=== PATIENT | female | born 1990 | race Asian ===

== ENCOUNTER 2017-01-31 02:40 | Inpatient (IN) | payer SELFPAY ==
[~2017-01-31] VITALS: Ht 162 cm; Wt 55.8 kg
[2017-01-31] MEDS ORDERED: LR 1,000 ML IV SCH (03:00)
[2017-01-31] MEDS ORDERED: TERBUTALINE SULFATE 1 MG/ML VIAL SUBCUT ONE (03:00)
[2017-01-31] MEDS ORDERED: OXYTOCIN/NORMAL SALINE 1,000 ML IV SCH ×2 (03:00→06:11)
[2017-01-31] MEDS ORDERED: LR 1,000 ML IV ONE (03:00)
[2017-01-31] MEDS ORDERED: NALBUPHINE HCL 10 MG/ML AMP IVP PRN (03:00)
[2017-01-31 03:47] LABS: HEMATOCRIT 40.8 % (36-48); HEMOGLOBIN 13.6 g/dL (12.0-16.0); MEAN CORPUSCULAR HEMOGLOBIN 34 pg (27-31); MEAN CORPUSCULAR HGB CONC 33 % (32-36); MEAN CORPUSCULAR VOLUME 103 fL (79.0-98.0); RED BLOOD CELL COUNT(AUTO) 3.94 MIL/uL (4.2-6.2); WHITE BLOOD COUNT (AUTO) 9.4 K/uL (4.8-10.8)
[2017-01-31 03:48] LABS: BASOPHILS # (AUTO) 0.3 K/uL (0.0-0.2); BASOPHILS % (AUTO) 3.2 % (0.0-2.0); EOSINOPHILS % (AUTO) 0.3 % (0.0-4.0); LYMPHOCYTES # (AUTO) 1.1 K/uL (1.0-5.5); LYMPHOCYTES % (AUTO) 11.6 % (20.5-51.5); MONOCYTES # (AUTO) 0.5 K/uL (0.0-1.0); MONOCYTES % (AUTO) 4.9 % (1.7-9.3); NEUTROPHILS # (AUTO) 7.5 K/uL (1.8-7.7); PLATELET COUNT (AUTO) 116 K/uL (130-430); RED CELL DISTRIBUTION WIDTH 12.1 % (9.0-15.0)
[2017-01-31] MEDS ORDERED: DERMOPLAST SPRAY TP PRN (06:15)
[2017-01-31] MEDS ORDERED: MEASLES,MUMPS&RUBELLA VACC/PF 12500 UNIT/0.5 ML VIAL SUBQ PRN (06:15)
[2017-01-31] MEDS ORDERED: ANUSOL 1 EA SUPP.RECT (PREPARATION H) RC PRN (06:15)
[2017-01-31] MEDS ORDERED: RHO(D) IMMUNE GLOBULIN/MALTOSE 1500 UNITS/1.3 ML (WINHRO) IM PRN (06:15)
[2017-01-31] MEDS ORDERED: HYDROCORTISONE 0.5%, 28.35 GM TOPICAL CREAM TP PRN (06:15)
[2017-01-31] MEDS ORDERED: METHYLERGONOVINE MALEATE 0.2 MG TABLET PO PRN (06:15)
[2017-01-31] MEDS ORDERED: ACETAMINOPHEN 325 MG TABLET PO PRN (06:15)
[2017-01-31] MEDS ORDERED: TEMAZEPAM 15 MG CAPSULE PO PRN (06:15)
[2017-01-31] MEDS ORDERED: HYDROcodone/ACETAMIN 5-325 MG TAB (NORCO/ VICODIN) PO PRN ×2 (06:15)
[2017-01-31] MEDS ORDERED: SENNOSIDES/DOCUSATE SODIUM 1 TAB TABLET(SENOKOT-S) PO PRN (06:15)
[2017-01-31] MEDS ORDERED: LANOLIN 7 GM OINT. TP PRN (06:15)
[2017-01-31] MEDS ORDERED: GLYCERIN/WITCH HAZEL (TUCKS PADS) TP PRN (06:15)
[2017-01-31] MEDS ORDERED: OXYTOCIN/NORMAL SALINE 1,000 ML IV ONE (07:00)
[2017-01-31 07:34] VITALS: BP_SYST 114
[2017-01-31] MEDS: DOCUSATE SODIUM 100 MG CAPSULE PO PRN (07:55)
[2017-01-31 11:27] VITALS: BP_SYST 114
[2017-01-31] MEDS: IBUPROFEN 600 MG TABLET PO SCH ×3 (12:25→23:52)
[2017-02-01] MEDS ORDERED: IBUPROFEN 600 MG TABLET ONE (05:43)
[2017-02-01] MEDS: IBUPROFEN 600 MG TABLET PO SCH ×3 (05:52→17:41)
[2017-02-01 07:34] LABS: HEMATOCRIT 37.2 % (36-48); HEMOGLOBIN 12.8 g/dL (12.0-16.0)
[2017-02-01] MEDS: DOCUSATE SODIUM 100 MG CAPSULE PO PRN (17:41)
[2017-02-02] MEDS: IBUPROFEN 600 MG TABLET PO SCH ×3 (00:03→12:11)
[2017-02-02] MEDS: DOCUSATE SODIUM 100 MG CAPSULE PO PRN (12:11)
[2017-02-02] MEDS ORDERED: LIDOCAINE PF 1% 30ML(POUR BTL) INJ ONE (13:15)
== END 2017-02-02 13:16 | disposition home or self-care (01) | DRG 775 ==
LOC: OBSVTOIN 02:40 → SPU 02:40
PROVIDERS: ADMIT Obstetrics & Gynecology; ATTEND Obstetrics & Gynecology
PROC: 10D07Z6 Extraction of Products of Conception, Vacuum, Via Natural or Artificial Opening (ICD-10-PCS; principal; 2017-01-31)
PROC: 0W8NXZZ Division of Female Perineum, External Approach (ICD-10-PCS; 2017-01-31)
PROC: 3E0134Z Introduction of Serum, Toxoid and Vaccine into Subcutaneous Tissue, Percutaneous Approach (ICD-10-PCS; 2017-01-31)
DX: O75.89 Other specified complications of labor and delivery (principal); Z3A.40 40 weeks gestation of pregnancy; Z37.0 Single live birth; Z23 Encounter for immunization
CPT/HCPCS: 36415; 85018-TC; 85025; 86592; 86886; 86900; 86901; J2001; J2590